=== PATIENT | male | born 1970 | race Caucasian/White ===

== ENCOUNTER 2019-02-05 22:57 | Emergency (ER) | payer OTHER ==
[2019-02-06 01:15] LABS: BASOPHILS % (AUTO) 0.8 % (0.0-2.0); EOSINOPHILS % (AUTO) 1.7 % (1.0-6.0); HEMATOCRIT 42.8 % (41-53); HEMOGLOBIN 14.2 g/dL (13.5-17.5); LYMPHOCYTES # (AUTO) 2.8 K/uL (1.0-4.8); LYMPHOCYTES % (AUTO) 41.2 % (22.0-44.0); MEAN CORPUSCULAR HEMOGLOBIN 31.7 pg (26.0-34.0); MEAN CORPUSCULAR HGB CONC 33.3 G/dL (31.0-37.0); MEAN CORPUSCULAR VOLUME 95 fL (80-100); MONOCYTES # (AUTO) 0.7 K/uL (0.1-1.0); NEUTROPHILS # (AUTO) 3.2 K/uL (1.8-7.7); NEUTROPHILS % (AUTO) 46.3 % (40.0-70.0); PLATELET COUNT (AUTO) 218 K/uL (150-450); RED BLOOD CELL COUNT(AUTO) 4.49 MIL/uL (4.50-5.90); RED CELL DISTRIBUTION WIDTH 13.9 % (11.5-14.5)
[2019-02-06 01:23] LABS: ANION GAP 9 mmol/L (8-16); CALCIUM, TOTAL 8.2 mg/dL (8.8-10.5); CARBON DIOXIDE 26 mmol/L (22-29); CHLORIDE 105 mmol/L (98-107); CREATININE 0.72 mg/dL (0.60-1.30); GLOMERULAR FILTR. RATE CALC > 60 mL/min (>60); GLUCOSE,RANDOM 101 mg/dL (70-110); POTASSIUM 3.3 mmol/L (3.5-5.1); SODIUM SERUM 140 mmol/L (136-145); UREA NITROGEN, BLOOD 13 mg/dL (7-18)
[2019-02-06 01:29] LABS: ALANINE AMINOTRANSFERASE 47 U/L (12-78); ALBUMIN 3.7 g/dL (3.4-5.0); ALKALINE PHOSPHATASE 90 U/L (46-116); ASPARTATE AMINOTRANSFERASE 40 U/L (15-37); BILIRUBIN,TOTAL 0.3 mg/dL (0.1-1.0); TOTAL PROTEIN, SERUM 7.4 g/dL (6.4-8.2)
[2019-02-06 04:57] VITALS: BP 132/84
== END 2019-02-06 05:05 | disposition home or self-care (01) ==
LOC: EMS 22:59
DX: F10.129 Alcohol abuse with intoxication, unspecified (principal); K70.30 Alcoholic cirrhosis of liver without ascites; E87.6 Hypokalemia; F17.210 Nicotine dependence, cigarettes, uncomplicated; Y90.6 Blood alcohol level of 120-199 mg/100 ml
CPT/HCPCS: 36415; 80053; 85025; 99283; 99406; G0480

== ENCOUNTER 2021-07-18 21:17 | Inpatient (IN) | payer MEDICAID, OTHER ==
[~2021-07-18] VITALS: Ht 175.3 cm; Wt 71.7 kg
[2021-07-18 21:39] LABS: COVID AG,FIA SOURCE NASOPHARYNGEAL
[2021-07-18 21:44] LABS: BASOPHILS % (AUTO) 0.9 % (0.0-2.0); EOSINOPHILS % (AUTO) 1.3 % (1.0-6.0); HEMATOCRIT 44.6 % (41-53); HEMOGLOBIN 14.9 g/dL (13.5-17.5); MEAN CORPUSCULAR HEMOGLOBIN 32.7 pg (26.0-34.0); MEAN CORPUSCULAR HGB CONC 33.3 G/dL (31.0-37.0); MEAN CORPUSCULAR VOLUME 98 fL (80-100); MONOCYTES # (AUTO) 0.5 K/uL (0.1-1.0); MONOCYTES % (AUTO) 8.9 % (2.0-9.0); NEUTROPHILS # (AUTO) 2.4 K/uL (1.8-7.7); NEUTROPHILS % (AUTO) 39.9 % (40.0-70.0); PLATELET COUNT (AUTO) 209 K/uL (150-450); RED BLOOD CELL COUNT(AUTO) 4.56 MIL/uL (4.50-5.90); RED CELL DISTRIBUTION WIDTH 13.8 % (11.5-14.5)
[2021-07-18 21:50] LABS: ANION GAP 10 mmol/L (8-16); CALCIUM, TOTAL 8.4 mg/dL (8.8-10.5); CARBON DIOXIDE 30 mmol/L (22-29); CHLORIDE 108 mmol/L (98-107); CREATININE 0.84 mg/dL (0.60-1.30); GLOMERULAR FILTR. RATE CALC > 60 mL/min (>60); GLUCOSE,RANDOM 108 mg/dL (70-110); POTASSIUM 3.3 mmol/L (3.5-5.1); SODIUM SERUM 148 mmol/L (136-145); UREA NITROGEN, BLOOD 9 mg/dL (7-18)
[2021-07-18 21:56] LABS: ALANINE AMINOTRANSFERASE 21 U/L (12-78); ALBUMIN 3.7 g/dL (3.4-5.0); ALKALINE PHOSPHATASE 100 U/L (46-116); ASPARTATE AMINOTRANSFERASE 20 U/L (15-37); BILIRUBIN,TOTAL 0.2 mg/dL (0.1-1.0); TOTAL PROTEIN, SERUM 7.7 g/dL (6.4-8.2)
[2021-07-18 22:15] LABS: SALICYLATE 4.4 mg/dL (2.8-20.0)
[2021-07-18 22:22] LABS: ACETAMINOPHEN < 2 mcg/mL (10-30)
[2021-07-18] MEDS ORDERED: ZOLPIDEM TARTRATE 10 MG TABLET PO PRN (23:00)
[2021-07-18] MEDS ORDERED: OLANZapine 5 MG RAPDIS TABLET PO PRN (23:00)
[2021-07-18] MEDS ORDERED: LORazepam 2 MG TABLET PO PRN (23:00)
[2021-07-19] MEDS ORDERED: POTASSIUM CHLORIDE 20 MEQ ER TABLET PO ONE
[2021-07-19 00:49] LABS: CHOL/HDL RATIO 2.3 (4.2-7.3); CHOLESTEROL 257 mg/dL (131-200); HDL CHOLESTEROL 111 mg/dL (40-60); LDL CHOL (CALC.) 118 mg/dL (0-130); TRIGLYCERIDES 140 mg/dL (15-150)
[2021-07-19 06:15] LABS: APPEARANCE,URINE CLEAR (CLEAR); BILIRUBIN,URINE NEGATIVE (NEGATIVE); GLUCOSE, URINE (UA) NEGATIVE (NEGATIVE); KETONES,URINE NEGATIVE (NEGATIVE); LEUKOCYTE ESTERASE ,URINE NEGATIVE (NEGATIVE); NITRATE,URINE NEGATIVE (NEGATIVE); OCCULT BLOOD,URINE NEGATIVE (NEGATIVE); PROTEIN,URINE NEGATIVE (NEGATIVE)
[2021-07-19 06:21] LABS: AMPHET/METH SCREEN,URINE POSITIVE (NEGATIVE); BARBITURATE SCREEN, URINE NEGATIVE (NEGATIVE); BENZODIAZEPINES SCREEN,URINE POSITIVE (NEGATIVE); CANNABINOID SCREEN,URINE POSITIVE (NEGATIVE); COCAINE SCREEN,URINE NEGATIVE (NEGATIVE); METHADONE SCREEN, URINE NEGATIVE (NEGATIVE); OPIATE SCREEN,URINE NEGATIVE (NEGATIVE)
[2021-07-19 06:23] LABS: PHENCYCLIDINE SCREEN,URINE NEGATIVE (NEGATIVE)
[2021-07-19] MEDS ORDERED: LOPERAMIDE HCL 2 MG CAPSULE PO PRN (17:00)
[2021-07-19] MEDS ORDERED: CYANOCOBALAMIN 1,000 MCG/ML VIAL IM ONE (17:00)
[2021-07-19] MEDS ORDERED: GuaiFENesin/D-METHORPHAN [SUGAR-FREE] 200-20MG/10 ML SYRUP UDCUP PO PRN (17:00)
[2021-07-19] MEDS ORDERED: LORazepam 2 MG TABLET PO PRN (17:00)
[2021-07-19] MEDS ORDERED: HydrOXYzine PAMOATE 50 MG CAPSULE PO PRN (17:00)
[2021-07-19] MEDS: THIAMINE 100 MG TABLET PO SCH (20:33)
[2021-07-19 21:25] VITALS: BP 148/97
[2021-07-19 21:30] VITALS: BP 148/97
[2021-07-19 22:30] VITALS: BP 142/87
[2021-07-19 22:43] VITALS: BP 148/97
[2021-07-19 23:30] VITALS: BP 137/79
[2021-07-20] VITALS (7 sets, daily range): BP systolic 122–165; BP diastolic 15–105
[2021-07-20] MEDS ORDERED: LORazepam 2 MG TABLET PO PRN (07:00)
[2021-07-20] MEDS ORDERED: MAGNESIUM HYDROXIDE SUSPENSION 30 ML UDCUP PO PRN (08:00)
[2021-07-20] MEDS ORDERED: PROMETHAZINE HCL 25 MG TABLET PO PRN (08:00)
[2021-07-20] MEDS ORDERED: ACETAMINOPHEN 325 MG TABLET PO PRN (08:00)
[2021-07-20] MEDS ORDERED: MAG HYDROX/AL HYDROX/SIMETH ES 30 ML SUSPENSION UDCUP PO PRN (08:00)
[2021-07-20] MEDS ORDERED: TUBERCULIN, PURIFIED PROTEIN DERIVATIVE 5 TU/0.1 ML SYRINGE ID ONE (08:00)
[2021-07-20] MEDS ORDERED: LOPERAMIDE HCL 2 MG CAPSULE PO PRN (08:00)
[2021-07-20] MEDS: PARoxetine HCL 20 MG TABLET PO SCH (08:40)
[2021-07-20] MEDS: GABAPENTIN 300 MG CAPSULE PO SCH ×4 (08:40→20:39)
[2021-07-20] MEDS: FOLIC ACID 1 MG TABLET PO SCH (08:40)
[2021-07-20] MEDS: NALTREXONE HCL 50 MG TABLET PO SCH (08:40)
[2021-07-20] MEDS: OMEGA-3/DHA/EPA/FISH OIL 1,000 MG CAPSULE PO SCH (08:40)
[2021-07-20] MEDS: MULTIVITAMINS WITH MINERALS, THERAPEUTIC TABLET PO SCH (08:40)
[2021-07-20] MEDS: THIAMINE 100 MG TABLET PO SCH ×2 (08:40→16:21)
[2021-07-20] MEDS ORDERED: LORazepam 2 MG TABLET PO SCH (09:00)
[2021-07-20] MEDS: DIAZEPAM 10 MG TABLET PO PRN (20:39)
[2021-07-20] MEDS: MELATONIN 5 MG TABLET PO SCH ×2 (21:00→21:07)
[2021-07-21] MEDS: DIAZEPAM 10 MG TABLET PO PRN (05:19)
[2021-07-21 05:23] VITALS: BP 168/93
[2021-07-21 05:40] LABS: HEMOGLOBIN A1C 5.4 % (3.8-5.6)
[2021-07-21 05:49] LABS: CHOL/HDL RATIO 2.5 (4.2-7.3); CHOLESTEROL 268 mg/dL (131-200); FREE T4 (FREE THYROXINE) 0.92 ng/dL (0.76-1.46); HDL CHOLESTEROL 107 mg/dL (40-60); LDL CHOL (CALC.) 137 mg/dL (0-130); TRIGLYCERIDES 118 mg/dL (15-150)
[2021-07-21] MEDS ORDERED: DIAZEPAM 10 MG TABLET PO PRN (07:00)
[2021-07-21] MEDS: OMEGA-3/DHA/EPA/FISH OIL 1,000 MG CAPSULE PO SCH (09:48)
[2021-07-21] MEDS: DIAZEPAM 10 MG TABLET PO SCH ×2 (09:48→12:56)
[2021-07-21] MEDS: FOLIC ACID 1 MG TABLET PO SCH (09:49)
[2021-07-21] MEDS: NALTREXONE HCL 50 MG TABLET PO SCH (09:49)
[2021-07-21] MEDS: THIAMINE 100 MG TABLET PO SCH (09:49)
[2021-07-21] MEDS: MULTIVITAMINS WITH MINERALS, THERAPEUTIC TABLET PO SCH (09:49)
[2021-07-21] MEDS: GABAPENTIN 300 MG CAPSULE PO SCH ×2 (09:49→12:56)
[2021-07-21] MEDS: PARoxetine HCL 20 MG TABLET PO SCH (09:49)
[2021-07-21 10:31] VITALS: BP 149/92
[2021-07-21 10:35] VITALS: BP 149/92
[2021-07-21] MEDS ORDERED: NALT50TA PO (11:20)
[2021-07-21] MEDS ORDERED: OMEG-135 PO (11:20)
[2021-07-21] MEDS ORDERED: MELA5TAB40 PO (11:20)
[2021-07-21] MEDS ORDERED: GABA-1181 PO (11:20)
[2021-07-21] MEDS ORDERED: PARO-37 PO (11:20)
[2021-07-21] MEDS ORDERED: METO25 PO (13:13)
[2021-07-21] MEDS ORDERED: ATOR20TA86 PO (13:13)
[2021-07-21] MEDS ORDERED: POTASSIUM CHLORIDE 20 MEQ ER TABLET PO ONE (13:15)
[2021-07-21] MEDS ORDERED: POTA-206 PO (13:15)
[2021-07-21] MEDS ORDERED: METOPROLOL TARTRATE 25 MG TABLET PO SCH (17:00)
[2021-07-21] MEDS ORDERED: POTASSIUM CHLORIDE 10% 40 MEQ/30 ML LIQUID UDCUP PO ONE (17:00)
[2021-07-22] MEDS ORDERED: LORazepam 1 MG TABLET PO PRN (07:00)
[2021-07-22] MEDS ORDERED: ATORVASTATIN CALCIUM 20 MG TABLET PO SCH (09:00)
[2021-07-22] MEDS ORDERED: LORazepam 1 MG TABLET PO SCH (09:00)
[2021-07-23] MEDS ORDERED: LORazepam 1 MG TABLET PO PRN (07:00)
[2021-07-23] MEDS ORDERED: DIAZEPAM 5 MG TABLET PO PRN (07:00)
[2021-07-23] MEDS ORDERED: DIAZEPAM 5 MG TABLET PO SCH (09:00)
[2021-07-24] MEDS ORDERED: DIAZEPAM 5 MG TABLET PO PRN (07:00)
== END 2021-07-21 13:40 | disposition home or self-care (01) | DRG 751 ==
LOC: EMS 21:17 → 3EI 07-19 19:00
PROVIDERS: ADMIT Psychiatry & Neurology Psychiatry; ATTEND Psychiatry & Neurology Psychiatry
DX: F33.2 Major depressive disorder, recurrent severe without psychotic features (principal); G40.909 Epilepsy, unspecified, not intractable, without status epilepticus; R45.851 Suicidal ideations; F10.129 Alcohol abuse with intoxication, unspecified; F41.0 Panic disorder [episodic paroxysmal anxiety]; Z55.9 Problems related to education and literacy, unspecified; Z59.9 Problem related to housing and economic circumstances, unspecified; Z63.9 Problem related to primary support group, unspecified; Z65.3 Problems related to other legal circumstances; Z78.1 Physical restraint status; Z91.19 Patient's noncompliance with other medical treatment and regimen; Z87.891 Personal history of nicotine dependence
CPT/HCPCS: 80053; 80061; 81003; 83036; 84439; 84443; 85025; 93005; 99285; G0480; G0481; J3420; Q9967

== ENCOUNTER 2021-07-29 10:42 | Emergency (ER) | payer OTHER ==
[~2021-07-29] VITALS: Ht 170.2 cm; Wt 75.0 kg
[~2021-07-29 10:42] MED LIST: ATOR20TA86 PO; GABA-1181 PO; MELA5TAB40 PO; METO25 PO; NALT50TA PO; OMEG-135 PO; PARO-37 PO; POTA-206 PO
[2021-07-29 15:05] LABS: BASOPHILS % (AUTO) 1.3 % (0.0-2.0); EOSINOPHILS % (AUTO) 1.1 % (1.0-6.0); HEMATOCRIT 45.4 % (41-53); HEMOGLOBIN 15.1 g/dL (13.5-17.5); LYMPHOCYTES # (AUTO) 2.9 K/uL (1.0-4.8); LYMPHOCYTES % (AUTO) 37.8 % (22.0-44.0); MEAN CORPUSCULAR HEMOGLOBIN 32.5 pg (26.0-34.0); MEAN CORPUSCULAR HGB CONC 33.2 G/dL (31.0-37.0); MEAN CORPUSCULAR VOLUME 98 fL (80-100); MONOCYTES # (AUTO) 0.6 K/uL (0.1-1.0); MONOCYTES % (AUTO) 7.5 % (2.0-9.0); NEUTROPHILS # (AUTO) 4.1 K/uL (1.8-7.7); NEUTROPHILS % (AUTO) 52.3 % (40.0-70.0); PLATELET COUNT (AUTO) 197 K/uL (150-450); RED BLOOD CELL COUNT(AUTO) 4.64 MIL/uL (4.50-5.90); RED CELL DISTRIBUTION WIDTH 13.8 % (11.5-14.5)
[2021-07-29 15:13] LABS: ANION GAP 8 mmol/L (8-16); CALCIUM, TOTAL 8.3 mg/dL (8.8-10.5); CARBON DIOXIDE 28 mmol/L (22-29); CHLORIDE 112 mmol/L (98-107); CREATININE 0.71 mg/dL (0.60-1.30); GLOMERULAR FILTR. RATE CALC > 60 mL/min (>60); GLUCOSE,RANDOM 90 mg/dL (70-110); POTASSIUM 4.1 mmol/L (3.5-5.1); SODIUM SERUM 148 mmol/L (136-145); UREA NITROGEN, BLOOD 5 mg/dL (7-18)
[2021-07-29 15:20] LABS: ALANINE AMINOTRANSFERASE 23 U/L (12-78); ALBUMIN 3.3 g/dL (3.4-5.0); ALKALINE PHOSPHATASE 85 U/L (46-116); ASPARTATE AMINOTRANSFERASE 32 U/L (15-37); BILIRUBIN,TOTAL 0.2 mg/dL (0.1-1.0); TOTAL PROTEIN, SERUM 7.2 g/dL (6.4-8.2)
[2021-07-29 16:00] VITALS: BP 122/75
== END 2021-07-29 16:02 | disposition home or self-care (01) ==
LOC: EDBD 10:44 → EMS 10:44 → MERGE 10:44 → EMS 16:02
DX: F25.9 Schizoaffective disorder, unspecified (principal); F10.129 Alcohol abuse with intoxication, unspecified; Y90.8 Blood alcohol level of 240 mg/100 ml or more
CPT/HCPCS: 36415; 80053; 85025; 99285; G0480